=== PATIENT | male | born 1950 | race Caucasian/White ===

== ENCOUNTER 2018-02-15 12:58 | Inpatient (IN) ==
[2018-02-15 15:02] LABS: Baso # (Auto) 0.1 th/mm3 (0.0-0.2); Baso % (Auto) 0.9 % (0.0-2.0); Eos # (Auto) 0.3 th/mm3 (0.0-0.4); Eos % (Auto) 3.6 % (0.0-4.0); Hematocrit 40.2 % (39.0-51.0); Hemoglobin 12.9 gm/dL (13.0-17.0); Lymph # (Auto) 1.1 th/mm3 (1.0-4.8); Lymph % (Auto) 15.6 % (9.0-44.0); Mean Corpuscular HGB Conc 32.1 % (32.0-36.0); Mean Corpuscular Hemoglobin 26.9 pg (27.0-34.0); Mean Corpuscular Volume 83.8 fL (80.0-100.0); Mean Platelet Volume 7.9 fL (7.0-11.0); Mono # (Auto) 0.9 th/mm3 (0.0-0.9); Mono % (Auto) 12.3 % (0.0-8.0); Neut # (Auto) 4.9 th/mm3 (1.8-7.7); Neut % (Auto) 67.6 % (16.0-70.0); Platelet Count 234 th/mm3 (150-450); Red Blood Count 4.79 mil/mm3 (4.50-5.90); Red Cell Distribution Width 17.8 % (11.6-17.2); White Blood Count 7.2 th/mm3 (4.0-11.0)
[2018-02-15 15:11] LABS: Activated Partial Thrombo Time 25.9 sec (24.3-30.1); Prothrombin Time 10.5 sec (9.8-11.6)
[2018-02-15 15:19] LABS: Alanine Aminotransferase 21 U/L (12-78); Albumin 3.5 g/dL (3.4-5.0); Anion Gap 7 meq/L (5-15); Aspartate Aminotransferase 16 U/L (15-37); Blood Urea Nitrogen 14 mg/dL (7-18); Calcium 9.1 mg/dL (8.5-10.1); Carbon Dioxide 25.8 meq/L (21.0-32.0); Chloride 107 meq/L (98-107); Glomerular Filtration Rate 68 mL/min (>89); Glucose,Random 144 mg/dL (74-106); Potassium 4.2 meq/L (3.5-5.1); Sodium 140 meq/L (136-145)
[2018-02-15 15:22] LABS: Alkaline Phosphatase 86 U/L (45-117); Total Protein 7.2 g/dL (6.4-8.2)
--- NOTE | 2018-02-15 16:09 | ED ---
HPI General Chief complaint: Skin/Abscess/Foreign Body Stated complaint: dr sent/skin Time Seen by Provider: 02/15/18 14:09 Source: patient Mode of arrival: wheelchair Limitations: no limitations History of Present Illness HPI narrative: Patient is a 67 year old male who comes in requiring a skin graft to his left foot. He says his back winder told him to come in to have the procedure done. He says he has had the ulcer for a while now, but the skin is not growing back. Dr. Back told him to come to the hospital for the procedure. He says he has been taking Bactrim for the ulcer. He denies fever or chills or any other complaints. Related Data Home Medications Medication Instructions Recorded Confirmed gabapentin 100 mg PO TID 02/15/18 02/15/18 insulin aspart U-100 [Novolog 1 sliding scale dose SUB-Q UD 02/15/18 02/15/18 PenFill U-100 Insulin] insulin detemir U-100 [Levemir 26 unit SUB-Q QPM 02/15/18 02/15/18 U-100 Insulin] lisinopril 10 mg PO DAILY 02/15/18 02/15/18 metformin 500 mg PO BID 02/15/18 02/15/18 Allergies Allergy/AdvReac Type Severity Reaction Status Date / Time No Known Allergies Allergy Unverified 02/15/18 14:09 Review of Systems ROS: all other systems reviewed are negative Constitutional Denies chills and Denies fever(s) ENT Denies dizziness Cardiovascular Denies chest pain and Denies edema Respiratory Denies cough and Denies dyspnea Gastrointestinal Denies nausea and Denies vomiting Musculoskeletal Denies myalgias and Denies arthralgias Integumentary/Breasts Reports lesions Neurologic Denies focal weakness and Denies numbness PMFSH Medical History Medical History Amputation of right lower extremity (Acute) Diabetes (Acute) Hypertension (Acute) Social History Social History Substance History: No History of Abuse Second Hand Smoke Exposure: No Smoking Status: Former smoker How Often Do You Have a Drink Containing Alcohol: 2 to 4 times a month Recent Travel in [facility] within the Last 8 Weeks: No Recent Out of Country Travel within the Last 8 Weeks: No Immunization History Tetanus Immunization: <5 Years Hx Influenza Vaccine This Season: Yes Exam Narrative Exam Narrative: GENERAL: Awake and alert, in no acute distress. SKIN: Circular lesion to the bottom of the left foot, no surrounding erythema or warmth. HEAD: Atraumatic. Normocephalic. EYES: Pupils equal and round. No scleral icterus. ENT: Mucous membranes pink and moist. NECK: Trachea midline. No JVD. CARDIOVASCULAR: Regular rate and rhythm. No murmur appreciated. RESPIRATORY: No accessory muscle use. Clear to auscultation. Breath sounds equal bilaterally. GASTROINTESTINAL: Abdomen soft, non-tender, nondistended. MUSCULOSKELETAL: Right AKA. left pedal pulse intact. NEUROLOGICAL: Awake and alert. No obvious cranial nerve deficits. Motor grossly within normal limits. Normal speech. PSYCHIATRIC: Appropriate mood and affect; insight and judgment normal. Course Initial Documented Vital Signs Temperature 98.3 F 02/15/18 13:05 Pulse Rate 103 H 02/15/18 13:05 Respiratory Rate 18 02/15/18 13:05 Blood Pressure 144/88 H 02/15/18 13:05 Pulse Oximetry 97 02/15/18 13:05 Last Documented Vital Signs Temperature 98.3 F 02/15/18 13:05 Pulse Rate 103 H 02/15/18 13:05 Respiratory Rate 18 02/15/18 13:05 Blood Pressure 144/88 H 02/15/18 13:05 Pulse Oximetry 97 02/15/18 13:05 Medical Decision Making MDM Narrative Medical decision making narrative: Patient is a 67-year-old male who comes in in need of a skin graft. Ulcer in his left foot. Exam shows an ulceration to the bottom of the foot, no surrounding erythema warmth. I spoke with Dr. Bishop who is aware of the patient. She says he requires admission and to continue on Bactrim. IV established, labs sent. Patient given pain medicine. He will be admitted for further management. Medical Screen Exam Complete: Yes Emergency Medical Condition: Yes Differential Diagnosis Differential Diagnosis: Cellulitis versus abscess versus ulcer Medical Records Medical records reviewed: Yes I reviewed the patient's medical records. Lab Data Lab results reviewed: Yes I reviewed the patient's lab results. Result diagrams: 02/15/18 14:50 08/25/18 14:50 Lab Results 02/15/18 02/15/18 02/15/18 Range/Units 14:50 14:50 14:50 WBC 7.2 (4.0-11.0) th/mm3 RBC 4.79 (4.50-5.90) mil/mm3 Hgb 12.9 L (13.0-17.0) gm/dL Hct 40.2 (39.0-51.0) % MCV 83.8 (80.0-100.0) fL MCH 26.9 L (27.0-34.0) pg MCHC 32.1 (32.0-36.0) % RDW 17.8 H (11.6-17.2) % Plt Count 234 (150-450) th/mm3 MPV 7.9 (7.0-11.0) fL Neut % (Auto) 67.6 (16.0-70.0) % Lymph % (Auto) 15.6 (9.0-44.0) % [place] % (Auto) 12.3 H (0.0-8.0) % Eos % (Auto) 3.6 (0.0-4.0) % Baso % (Auto) 0.9 (0.0-2.0) % Neut # (Auto) 4.9 (1.8-7.7) th/mm3 Lymph # (Auto) 1.1 (1.0-4.8) th/mm3 [place] # (Auto) 0.9 (0.0-0.9) th/mm3 Eos # (Auto) 0.3 (0.0-0.4) th/mm3 Baso # (Auto) 0.1 (0.0-0.2) th/mm3 WBC Differential . Differential Comment Auto diff final PT 10.5 (9.8-11.6) sec INR 1.0 Ratio APTT 25.9 (24.3-30.1) sec Sodium 140 (136-145) meq/L Potassium 4.2 (3.5-5.1) meq/L Chloride 107 (98-107) meq/L Carbon Dioxide 25.8 (21.0-32.0) meq/L Anion Gap 7 (5-15) meq/L BUN 14 (7-18) mg/dL Creatinine 1.09 (0.60-1.30) mg/dL Estimated GFR 68 L (>89) mL/min Random Glucose 144 H (74-106) mg/dL Calcium 9.1 (8.5-10.1) mg/dL Total Bilirubin 0.5 (0.2-1.0) mg/dL AST 16 (15-37) U/L ALT 21 (12-78) U/L Alkaline Phosphatase 86 (45-117) U/L Total Protein 7.2 (6.4-8.2) g/dL Albumin 3.5 (3.4-5.0) g/dL Discharge Plan Discharge Disposition Patient Disposition: 30 Still Patient Discharge Condition Condition: Stable Discharge Details Diagnosis: Nonhealing ulcer of left lower extremity Physicians Team ED Provider: Jazmin Mena Primary Care Provider: Camilo Hodges Rxs /Orders / Referrals /Forms Prescriptions: No Action metformin 500 mg Tablet 500 mg PO BID RF: 0 lisinopril 10 mg Tablet 10 mg PO DAILY RF: 0 gabapentin 100 mg Capsule 100 mg PO TID RF: 0 insulin aspart U-100 [Novolog PenFill U-100 Insulin] 100 unit/mL Cartridge 1 sliding scale dose SUB-Q UD RF: 0 insulin detemir U-100 [Levemir U-100 Insulin] 100 unit/mL Solution 26 unit SUB-Q QPM RF: 0 Discharge Interventions Interventions: Vital Signs Last Done: 02/15/18 13:07 Status ED Status: With Doctor
--- NOTE | 2018-02-15 16:26 | P.HPIM ---
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 The patient is followed by Dr. Back and was seen yesterday in the office. She informed him to go to the hospital as soon as possible for pre-op prep prior to planned skin graft on Saturday. The patient states he was not able to get a ride yesterday so he came today. He has no complaints and reports he is feeling well. He was prescribed Bactrim yesterday but hasn't had the chance to fill the prescription yet. He states he has had a chronic open left plantar foot wound since about mid-June following a toe amputation and callus removal. He states the wound has been clean but skin has never been able to grow over and cover it thus needing the skin graft. I certify that the inpatient services were ordered in accordance with Medicare regulations governing the order. This includes certification that hospital inpatient services are reasonable and necessary and in the case of services not specified as inpatient-only under 42 CFR 419.22(n), that they are appropriately provided as inpatient services in accordance to with the 2-midnight benchmark under 43 CFR 412.3(e) - Diagnosis (1) Chronic wound of extremity Review of Systems Constitutional: Denies chills, Denies fever(s) Cardiovascular: Denies chest pain, Denies fast heart rate, Denies rapid, pounding, or irregular heartbeat, Denies shortness of breath Respiratory: Denies cough, Denies wheezing Gastrointestinal: Denies abdominal pain, Denies change in stools Genitourinary: Denies difficulty urinating Musculoskeletal: Denies back pain Skin/Breast: Denies rash PMFSH - History History Provided By: Patient - Medical History Medical History: Medical History (Last Updated 02/15/18 @ 16:48 by Tessie Cottrell MD) Diabetes Hypertension MRSA (methicillin resistant Staphylococcus aureus) infection Peripheral vascular disease Umbilical hernia - Surgical History Surgical History: Surgical History (Last Updated 02/15/18 @ 16:24 by Tessie Cottrell MD) Amputated toe of left foot Amputation of right lower extremity History of right above knee amputation - Family History Family History: Family History (Last Updated 02/15/18 @ 16:25 by Tessie Cottrell MD) Mother CVA (cerebral vascular accident) Father Lung cancer - Tobacco History Second Hand Smoke Exposure: No Smoking Status: Former smoker (Quit June 2017) - Alcohol History How Often Do You Have a Drink Containing Alcohol: 2 to 4 times a month - Substance Use History Substance History: No History of Abuse - Travel History Recent Travel in the [place] Within the Last 8 Weeks: No Recent Travel Out of the Country Within the Last 8 Weeks: No - Immunization History Tetanus Immunization: <5 Years Hx Influenza Vaccine This Season: Yes Medications and Allergies Allergies Allergy/AdvReac Type Severity Reaction Status Date / Time No Known Allergies Allergy Unverified 02/15/18 14:09 Home Medications Medication Instructions Recorded Confirmed Type gabapentin 100 mg PO TID 02/15/18 02/15/18 History insulin aspart U-100 [Novolog 1 sliding scale dose SUB-Q UD 02/15/18 02/15/18 History PenFill U-100 Insulin] insulin detemir U-100 [Levemir 26 unit SUB-Q QPM 02/15/18 02/15/18 History U-100 Insulin] lisinopril 10 mg PO DAILY 02/15/18 02/15/18 History metformin 500 mg PO BID 02/15/18 02/15/18 History Exam Vital signs: Vital Signs 02/15/18 13:05 02/15/18 13:07 Temperature 98.3 F Pulse Rate 103 H 80 Respiratory Rate 18 16 Blood Pressure 144/88 H 143/86 H Pulse Oximetry 97 96 Intake & Output 02/14/18 02/15/18 02/15/18 18:59 06:59 18:59 Weight 88.451 kg Narrative: GENERAL: WN, WD male resting in bed in [facility]. SKIN: Warm and dry. HEENT: AT/NC. Pupils equal and round. MMM. NECK: Supple no tender LAD or JVD. HEART: RRR no m/r/g. LUNGS: CTAB without wheezes or crackles. ABDOMEN: +BS, soft, NT, ND. EXTREMITIES: R above the knee amputation. L 5x4 cm clean, wound with bed of pink /red granulation tissue. No surrounding erythema. No drainage. No foul odor. L 5th digit amputated. NEURO: Awake and alert. PSYCH: Appropriate mood and affect. Results - Labs CBC & Chem 7: 02/15/18 14:50 02/15/18 14:50 Labs: Short CBC 02/15/18 Range/Units 14:50 WBC 7.2 (4.0-11.0) th/mm3 Hgb 12.9 L (13.0-17.0) gm/dL Hct 40.2 (39.0-51.0) % Plt Count 234 (150-450) th/mm3 BMP 02/15/18 14:50 Sodium 140 Potassium 4.2 Chloride 107 Carbon Dioxide 25.8 BUN 14 Creatinine 1.09 Calcium 9.1 Liver Function 02/15/18 Range/Units 14:50 Total Bilirubin 0.5 (0.2-1.0) mg/dL AST 16 (15-37) U/L ALT 21 (12-78) U/L Alkaline Phosphatase 86 (45-117) U/L Albumin 3.5 (3.4-5.0) g/dL Caprini VTE Risk Assessment Caprini VTE Risk Assessment: Moderate/High Risk (score >= 2) Caprini Risk Assessment Model: Point Value = 1 Point Value = 2 Point Value = 3 Point Value = 5 Age 41-60 Minor surgery BMI > 25 kg/m2 Swollen legs Varicose veins or History of unexplained or recurrent spontaneous Oral contraceptives or hormone replacement Sepsis (< 1 month) Serious lung disease, including pneumonia (< 1 month) Abnormal pulmonary function Acute myocardial infarction Congestive heart failure (< 1 month) History of inflammatory bowel disease Medical patient at bed rest Age 61-74 Arthroscopic surgery Major open surgery (> 45 min) Laparoscopic surgery (> 45 min) Malignancy Confined to bed (> 72 hours) Immobilizing plaster cast Central venous access Age >= 75 History of VTE Family history of VTE Factor V Leiden Prothrombin [id number] Lupus anticoagulant Anticardiolipin antibodies Elevated serum homocysteine Heparin-induced thrombocytopenia Other congenital or acquired thrombophilia Stroke (< 1 month) Elective arthroplasty Hip, pelvis, or leg fracture Acute spinal cord injury (< 1 month) Prophylaxis Regimen: Total Risk Factor Score Risk Level Prophylaxis Regimen 0-1 Low Early ambulation 2 Moderate Order ONE of the following: *Sequential Compression Device (SCD) *Heparin 5000 units SQ BID 3-4 Higher Order ONE of the following medications: *Heparin 5000 units SQ TID *Enoxaparin/Lovenox 40 mg SQ daily (WT < 150 kg, CrCl > 30 mL/min) *Enoxaparin/Lovenox 30 mg SQ daily (WT < 150 kg, CrCl > 10-29 mL/min) *Enoxaparin/Lovenox 30 mg SQ BID (WT < 150 kg, CrCl > 30 mL/min) AND/OR *Sequential Compression Device (SCD) 5 or more Highest Order ONE of the following medications: *Heparin 5000 units SQ TID (Preferred with Epidurals) *Enoxaparin/Lovenox 40 mg SQ daily (WT < 150 kg, CrCl > 30 mL/min) *Enoxaparin/Lovenox 30 mg SQ daily (WT < 150 kg, CrCl > 10-29 mL/min) *Enoxaparin/Lovenox 30 mg SQ BID (WT < 150 kg, CrCl > 30 mL/min) AND *Sequential Compression Device (SCD) Assessment and Plan - Assessment (1) Chronic wound of extremity Status: Chronic - Plan 67 year old male with history of IDDM, HTN, neuropathy, and PVD admitted for L chronic foot wound requiring skin graft. 1. L chronic plantar foot wound - Continue Bactrim - Monitor for drainage - Consult podiatry - Planning for skin graft Saturday 2. Diabetes mellitus - Levemir 10 units BID - Sliding scale Novolog with Accuchecks per protocol - Hold home metformin 3. Neuropathy - Continue home gabapentin 4. HTN - Continue home Lisinopril - Monitor BPs DVT prophylaxis: Heparin Code Status: FULL Discussed Condition With: Patient and Dr. Mena
[2018-02-15] MEDS ORDERED: Zolpidem Tartrate 5 MG Tablet PO PRN (16:33)
[2018-02-15] MEDS ORDERED: Acetaminophen 325 MG Tablet PO PRN (16:33)
[2018-02-15] MEDS ORDERED: Bisacodyl 10 MG Supp RECTAL PRN (16:33)
[2018-02-15] MEDS ORDERED: Dextrose 50% in Water 50 ML Vial IV.PUSH PRN (16:53)
[2018-02-15] MEDS: Insulin NovoLOG Aspart Correctional Sugar Inj SQ SCH ×2 (18:19→22:08)
[2018-02-15] MEDS: Gabapentin 100 MG Capsule PO SCH (18:20)
[2018-02-15] MEDS: Insulin Detemir Inj 1,000 UNIT/10 ML Vial SQ SCH (22:07)
[2018-02-15] MEDS: Heparin - SQ 10,000 UNITS/ML Vial SQ SCH (22:07)
[2018-02-15] MEDS: Senna/Docusate Sodium 8.6/50 MG Tablet PO SCH (22:08)
[2018-02-16] MEDS: Insulin NovoLOG Aspart Correctional Sugar Inj SQ SCH ×4 (08:26→21:32)
[2018-02-16] MEDS: Lisinopril 10 MG Tablet PO SCH (08:29)
[2018-02-16] MEDS: Heparin - SQ 10,000 UNITS/ML Vial SQ SCH ×2 (08:29→21:31)
[2018-02-16] MEDS: Senna/Docusate Sodium 8.6/50 MG Tablet PO SCH ×3 (08:29→21:33)
[2018-02-16] MEDS: Gabapentin 100 MG Capsule PO SCH ×3 (08:29→17:13)
[2018-02-16] MEDS: Insulin Detemir Inj 1,000 UNIT/10 ML Vial SQ SCH ×2 (08:30→21:32)
--- NOTE | 2018-02-16 13:37 | P.CONPOD ---
History of Present Illness Service: Podiatry Consult date: 02/16/18 Reason for Consult: Ulcer L foot Primary Care Provider: Camilo Hodges MD History of Present Illness: Patient has long history of ulcer L foot. He has BKA R side and is anxious to continue any and all efforts for limb salvage to L side. He saw Dr Back on and she suggested he come in for debridement in the OR and attempt to graft the area to continue limb salvage efforts Review of Systems All other systems reviewed negative except as stated in HPI PMFSH - History History Provided By: Patient - Medical History Medical History: Medical History (Last Updated 02/15/18 @ 16:48 by Tessie Cottrell MD) Diabetes Hypertension MRSA (methicillin resistant Staphylococcus aureus) infection Peripheral vascular disease Umbilical hernia - Surgical History Surgical History: Surgical History (Last Updated 02/15/18 @ 16:24 by Tessie Cottrell MD) Amputated toe of left foot Amputation of right lower extremity History of right above knee amputation - Family History Family History: Family History (Last Updated 02/15/18 @ 16:25 by Tessie Cottrell MD) Mother CVA (cerebral vascular accident) Father Lung cancer - Tobacco History Second Hand Smoke Exposure: No Smoking Status: Former smoker (Quit June 2017) - Alcohol History How Often Do You Have a Drink Containing Alcohol: 2 to 4 times a month - Substance Use History Substance History: No History of Abuse - Travel History Recent Travel in the [place] Within the Last 8 Weeks: No Recent Travel Out of the Country Within the Last 8 Weeks: No - Immunization History Tetanus Immunization: <5 Years Hx Influenza Vaccine This Season: Yes Medications and Allergies Active Medications: Active Medications Acetaminophen (Tylenol) 650 mg PO Q4H PRN PRN Reason: Temp > 100.4 Hydrocodone Bitart/Acetaminophen ([place] 5/325) 1 tab PO Q6H PRN PRN Reason: PAIN SCALE 1 TO 10 Last Admin: 02/16/18 04:41 Dose: 1 tab Al Hydroxide/Mg Hydroxide (Milk Of Magnesia Liq) 30 ml PO Q12H PRN PRN Reason: Mild Constipation Bisacodyl (Dulcolax Supp) 10 mg RECTAL DAILY PRN PRN Reason: SEVERE CONSITIPATION Dextrose (D50w Vial) 50 ml IV.PUSH UNSCH PRN PRN Reason: PER HYPOGLYCEMIA PROTOCOL Gabapentin (Neurontin) 100 mg PO TID [facility] Last Admin: 02/16/18 12:41 Dose: 100 mg Glucagon (Glucagon Inj) 1 mg OTHER PRN PRN PRN Reason: for Hypoglycemia Protocol Heparin Sodium (Porcine) (Heparin Inj) 5,000 units SQ Q12HR [facility] Last Admin: 02/16/18 08:29 Dose: 5,000 units Insulin Aspart (Novolog Insulin Correctional Sugar Inj) 0 unit SQ ACHS [facility]; Protocol Last Admin: 02/16/18 12:41 Dose: 3 unit Insulin Detemir (Levemir Inj) 10 unit SQ BID [facility] Last Admin: 02/16/18 08:30 Dose: 10 unit Lactulose (Lactulose Liq) 30 ml PO DAILY PRN PRN Reason: SEVERE CONSITIPATION Lisinopril (Prinivil) 10 mg PO DAILY [facility] Last Admin: 02/16/18 08:29 Dose: 10 mg Senna/Docusate Sodium (Jacque-Colace) 1 tab PO BID [facility] Last Admin: 02/16/18 08:31 Dose: Not Given Sennosides (Senokot) 17.2 mg PO Q12H PRN PRN Reason: Moderate Constipation Trimethoprim/Sulfamethoxazole (Bactrim Ds) 1 tab PO Q12HR [facility] Last Admin: 02/16/18 08:29 Dose: 1 tab Zolpidem Tartrate (Ambien) 5 mg PO HS PRN PRN Reason: INSOMNIA Allergies Allergy/AdvReac Type Severity Reaction Status Date / Time No Known Allergies Allergy Unverified 02/15/18 14:09 Home Medications Medication Instructions Recorded Confirmed Type gabapentin 100 mg PO TID 02/15/18 02/15/18 History insulin aspart U-100 [Novolog 1 sliding scale dose SUB-Q UD 02/15/18 02/15/18 History PenFill U-100 Insulin] insulin detemir U-100 [Levemir 26 unit SUB-Q QPM 02/15/18 02/15/18 History U-100 Insulin] lisinopril 10 mg PO DAILY 02/15/18 02/15/18 History metformin 500 mg PO BID 02/15/18 02/15/18 History Physical Exam Vital signs: Vital Signs 02/15/18 20:00 02/16/18 00:00 02/16/18 08:00 Temperature 98.2 F 98.1 F 97.5 F L Pulse Rate 86 86 82 Respiratory Rate 18 18 16 Blood Pressure 124/79 134/83 141/81 H Pulse Oximetry 93 L 96 95 02/16/18 12:00 Temperature 97.9 F Pulse Rate 86 Respiratory Rate 16 Blood Pressure 122/70 Pulse Oximetry 94 L Intake & Output 02/15/18 02/16/18 02/16/18 18:59 06:59 18:59 Output Total 1400 / 1400 Balance -1400 / -1400 Weight 88.451 kg 89.52 kg Output: Urine 1400 / 1400 Other: Date of Last Bowel Movement 02/15/18 Narrative: Ulcer to plantar L foot 4cm x 3.9cm x 0.4cm probing to bone with mild erythema. No yanet purulence noted. R side BKA Results - Labs CBC & Chem 7: 02/15/18 14:50 02/15/18 14:50 Laboratory Results - last 24 hr 02/15/18 02/15/18 02/15/18 14:50 14:50 14:50 WBC 7.2 RBC 4.79 Hgb 12.9 L Hct 40.2 MCV 83.8 MCH 26.9 L MCHC 32.1 RDW 17.8 H Plt Count 234 MPV 7.9 Neut % (Auto) 67.6 Lymph % (Auto) 15.6 [place] % (Auto) 12.3 H Eos % (Auto) 3.6 Baso % (Auto) 0.9 Neut # (Auto) 4.9 Lymph # (Auto) 1.1 [place] # (Auto) 0.9 Eos # (Auto) 0.3 Baso # (Auto) 0.1 WBC Differential . Differential Comment Auto diff final PT 10.5 INR 1.0 APTT 25.9 Sodium 140 Potassium 4.2 Chloride 107 Carbon Dioxide 25.8 Anion Gap 7 BUN 14 Creatinine 1.09 Estimated GFR 68 L POC Glucose Random Glucose 144 H Calcium 9.1 Total Bilirubin 0.5 AST 16 ALT 21 Alkaline Phosphatase 86 Total Protein 7.2 Albumin 3.5 02/15/18 02/15/18 02/16/18 18:19 21:59 07:18 WBC RBC Hgb Hct MCV MCH MCHC RDW Plt Count MPV Neut % (Auto) Lymph % (Auto) [place] % (Auto) Eos % (Auto) Baso % (Auto) Neut # (Auto) Lymph # (Auto) [place] # (Auto) Eos # (Auto) Baso # (Auto) WBC Differential Differential Comment PT INR APTT Sodium Potassium Chloride Carbon Dioxide Anion Gap BUN Creatinine Estimated GFR POC Glucose 134 H 212 H 153 H Random Glucose Calcium Total Bilirubin AST ALT Alkaline Phosphatase Total Protein Albumin 02/16/18 11:48 WBC RBC Hgb Hct MCV MCH MCHC RDW Plt Count MPV Neut % (Auto) Lymph % (Auto) [place] % (Auto) Eos % (Auto) Baso % (Auto) Neut # (Auto) Lymph # (Auto) [place] # (Auto) Eos # (Auto) Baso # (Auto) WBC Differential Differential Comment PT INR APTT Sodium Potassium Chloride Carbon Dioxide Anion Gap BUN Creatinine Estimated GFR POC Glucose 215 H Random Glucose Calcium Total Bilirubin AST ALT Alkaline Phosphatase Total Protein Albumin Assessment and Plan - Assessment (1) Chronic wound of extremity Status: Chronic - Plan To OR tomorrow 2 pm for I&D left foot with graft with Dr Back NPO after midnight
--- NOTE | 2018-02-16 14:53 | P.PNIM ---
Subjective Interval history: Patient says he is feeling right. Denies any chest pain shortness of breath. Reports pain is controlled. Physical Exam Vital signs: Vital Signs 02/15/18 20:00 02/16/18 00:00 02/16/18 08:00 Temperature 98.2 F 98.1 F 97.5 F L Pulse Rate 86 86 82 Respiratory Rate 18 18 16 Blood Pressure 124/79 134/83 141/81 H Pulse Oximetry 93 L 96 95 02/16/18 12:00 02/16/18 13:43 Temperature 97.9 F Pulse Rate 86 Respiratory Rate 16 Blood Pressure 122/70 Pulse Oximetry 94 L 94 L Intake & Output 02/15/18 02/16/18 02/16/18 18:59 06:59 18:59 Output Total 1400 / 1400 Balance -1400 / -1400 Weight 88.451 kg 89.52 kg Output: Urine 1400 / 1400 Other: Date of Last Bowel Movement 02/15/18 Narrative: GENERAL: Patient lying in bed. Appears comfortable. SKIN: Warm and dry. HEAD: Normocephalic. EYES: No scleral icterus. No injection or drainage. NECK: Supple, trachea midline. No JVD or lymphadenopathy. CARDIOVASCULAR: Regular rate and rhythm without murmurs, gallops, or rubs. RESPIRATORY: Breath sounds equal bilaterally. No accessory muscle use. GASTROINTESTINAL: Abdomen soft, non-tender, nondistended. MUSCULOSKELETAL: No cyanosis, or edema. Left foot dressed with dressing clean dry and intact. BACK: Nontender without obvious deformity. No CVA tenderness. Results - Labs CBC & Chem 7: 02/15/18 14:50 02/15/18 14:50 Laboratory Results - last 24 hr 02/15/18 02/15/18 02/15/18 14:50 14:50 14:50 WBC 7.2 RBC 4.79 Hgb 12.9 L Hct 40.2 MCV 83.8 MCH 26.9 L MCHC 32.1 RDW 17.8 H Plt Count 234 MPV 7.9 Neut % (Auto) 67.6 Lymph % (Auto) 15.6 [place] % (Auto) 12.3 H Eos % (Auto) 3.6 Baso % (Auto) 0.9 Neut # (Auto) 4.9 Lymph # (Auto) 1.1 [place] # (Auto) 0.9 Eos # (Auto) 0.3 Baso # (Auto) 0.1 WBC Differential . Differential Comment Auto diff final PT 10.5 INR 1.0 APTT 25.9 Sodium 140 Potassium 4.2 Chloride 107 Carbon Dioxide 25.8 Anion Gap 7 BUN 14 Creatinine 1.09 Estimated GFR 68 L POC Glucose Random Glucose 144 H Calcium 9.1 Total Bilirubin 0.5 AST 16 ALT 21 Alkaline Phosphatase 86 Total Protein 7.2 Albumin 3.5 02/15/18 02/15/18 02/16/18 18:19 21:59 07:18 WBC RBC Hgb Hct MCV MCH MCHC RDW Plt Count MPV Neut % (Auto) Lymph % (Auto) [place] % (Auto) Eos % (Auto) Baso % (Auto) Neut # (Auto) Lymph # (Auto) [place] # (Auto) Eos # (Auto) Baso # (Auto) WBC Differential Differential Comment PT INR APTT Sodium Potassium Chloride Carbon Dioxide Anion Gap BUN Creatinine Estimated GFR POC Glucose 134 H 212 H 153 H Random Glucose Calcium Total Bilirubin AST ALT Alkaline Phosphatase Total Protein Albumin 02/16/18 11:48 WBC RBC Hgb Hct MCV MCH MCHC RDW Plt Count MPV Neut % (Auto) Lymph % (Auto) [place] % (Auto) Eos % (Auto) Baso % (Auto) Neut # (Auto) Lymph # (Auto) [place] # (Auto) Eos # (Auto) Baso # (Auto) WBC Differential Differential Comment PT INR APTT Sodium Potassium Chloride Carbon Dioxide Anion Gap BUN Creatinine Estimated GFR POC Glucose 215 H Random Glucose Calcium Total Bilirubin AST ALT Alkaline Phosphatase Total Protein Albumin Assessment and Plan - Assessment (1) Chronic wound of extremity Status: Chronic - Plan 67 year old male with history of IDDM, HTN, neuropathy, and PVD admitted for L chronic foot wound requiring skin graft. //L chronic plantar foot wound - Continue Bactrim - Monitor for drainage - Consult podiatry - Planning for skin graft Saturday = Plan for surgery tomorrow. Appreciate podiatry assistance. //Diabetes mellitus - Levemir 10 units BID - Sliding scale Novolog with Accuchecks per protocol - Hold home metformin =Blood sugars acceptable. Continue to monitor. //Neuropathy - Continue home gabapentin //HTN - Continue home Lisinopril - Monitor BPs DVT prophylaxis: Heparin Discharge Planning: Surgery tomorrow. Appreciate podiatry assistance
[2018-02-17] MEDS: Insulin NovoLOG Aspart Correctional Sugar Inj SQ SCH ×4 (08:05→21:10)
[2018-02-17] MEDS: Senna/Docusate Sodium 8.6/50 MG Tablet PO SCH ×2 (09:36→21:10)
[2018-02-17] MEDS: Lisinopril 10 MG Tablet PO SCH (09:36)
[2018-02-17] MEDS: Gabapentin 100 MG Capsule PO SCH ×3 (09:37→17:39)
[2018-02-17] MEDS: Insulin Detemir Inj 1,000 UNIT/10 ML Vial SQ SCH ×2 (11:10→21:10)
[2018-02-17] MEDS: Heparin - SQ 10,000 UNITS/ML Vial SQ SCH ×2 (11:20→22:38)
[2018-02-17] MEDS ORDERED: Lidocaine PF 1% Inj 5 ML Syringe INFILTRATN ONE (12:00)
[2018-02-17] MEDS ORDERED: Phenylephrine/NS 1000 MCG/10ML Syringe IV.PUSH ONE (12:00)
--- NOTE | 2018-02-17 12:50 | P.PN ---
Subjective Interval history: Follow up Chronic plantar foot wound Patient awaiting surgery this afternoon endorses foot pain which is improved with [place] offers no other concerns/complaints at this time Physical Exam Vital signs: Vital Signs 02/16/18 13:43 02/16/18 16:00 02/16/18 16:45 Temperature 97.4 F L Pulse Rate 98 H Respiratory Rate 20 17 Blood Pressure 136/67 Pulse Oximetry 94 L 95 02/16/18 20:00 02/17/18 00:00 02/17/18 09:55 Temperature 97.4 F L 97.6 F Pulse Rate 87 83 Respiratory Rate 18 18 Blood Pressure 119/74 133/76 Pulse Oximetry 95 92 L 93 L Intake & Output 02/16/18 02/17/18 02/17/18 18:59 06:59 18:59 Intake Total 1600 / 1600 Output Total 800 / 800 1100 / 1100 Balance 800 / 800 -1100 / -1100 Intake: Oral 1600 / 1600 Output: Urine 800 / 800 1100 / 1100 Other: Date of Last Bowel Movement 02/15/18 Narrative: GENERAL: Patient sitting up in bed. Appears comfortable. SKIN: Warm and dry. HEAD: Normocephalic. EYES: No scleral icterus. No injection or drainage. NECK: Supple, trachea midline. No JVD or lymphadenopathy. CARDIOVASCULAR: Regular rate and rhythm RESPIRATORY: Breath sounds equal bilaterally. No accessory muscle use. GASTROINTESTINAL: Abdomen soft, non-tender, nondistended. MUSCULOSKELETAL: No cyanosis, or edema. Left foot dressed with dressing clean dry and intact. BACK: Nontender without obvious deformity. No CVA tenderness. Results - Labs CBC & Chem 7: 02/15/18 14:50 02/15/18 14:50 Laboratory Results - last 24 hr 02/16/18 02/16/18 02/17/18 15:41 19:44 07:52 POC Glucose 143 H 205 H 135 H 02/17/18 11:15 POC Glucose 155 H Assessment and Plan - Plan 67 year old male with history of IDDM, HTN, neuropathy, and PVD admitted for L chronic foot wound requiring skin graft. //L chronic plantar foot wound - Continue Bactrim - Monitor for drainage - Consult podiatry - Planning for skin graft Saturday - Appreciate podiatry assistance. - CBC and BMP in AM //Diabetes mellitus - Levemir 10 units BID - hold patient currently NPO - Sliding scale Novolog with Accu checks per protocol - Hold home metformin - Continue to monitor. //Neuropathy - Continue home gabapentin //HTN - Continue home Lisinopril - Monitor BPs DVT prophylaxis: Heparin Discharge Planning: Surgery this afternoon. Appreciate podiatry assistance Discussed case with supervising physician Dr. Nj
--- NOTE | 2018-02-17 13:26 | ECG ---
Date Performed: 02/16/2018 Time Performed: 21:20:15 PTAGE: 67 years EKG: Sinus rhythm MILD DIFFUSE ST ELEVATION ANTEROSEPTAL Q WAVES NO PREVIOUS TRACING DOCTOR: Chucho Ayala Interpretating Date/Time 02/17/2018 13:25:42
[2018-02-17] MEDS ORDERED: Bupivacaine PF 0.5% Inj 30 ML Vial ONE (14:38)
[2018-02-17] MEDS ORDERED: Lidocaine 1% Inj 50 ML Vial ONE (14:39)
--- NOTE | 2018-02-17 15:41 | P.PNPOD ---
Subjective Interval history: Patient seen bedside in preop. In agreement with left foot surgical intervention. Denies any N,V,F,Ch. Physical Exam Vital signs: Vital Signs 02/16/18 16:00 02/16/18 16:45 02/16/18 20:00 Temperature 97.4 F L 97.4 F L Pulse Rate 98 H 87 Respiratory Rate 20 17 18 Blood Pressure 136/67 119/74 Pulse Oximetry 95 95 02/17/18 00:00 02/17/18 08:00 02/17/18 09:55 Temperature 97.6 F 97.8 F Pulse Rate 83 88 Respiratory Rate 18 18 Blood Pressure 133/76 134/79 Pulse Oximetry 92 L 94 L 93 L 02/17/18 12:00 Temperature 97.8 F Pulse Rate 93 H Respiratory Rate 20 Blood Pressure 123/72 Pulse Oximetry 96 Intake & Output 02/16/18 02/17/18 02/17/18 18:59 06:59 18:59 Intake Total 1600 / 1600 Output Total 800 / 800 1100 / 1100 Balance 800 / 800 -1100 / -1100 Intake: Oral 1600 / 1600 Output: Urine 800 / 800 1100 / 1100 Other: Date of Last Bowel Movement 02/15/18 02/15/17 Narrative: Dressing to left foot intact with no serous drainage. 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 DP/PT palpable however diminished. Medications and Allergies Active Medications: Active Medications Acetaminophen (Tylenol) 650 mg PO Q4H PRN PRN Reason: Temp > 100.4 Hydrocodone Bitart/Acetaminophen ([place] 5/325) 1 tab PO Q6H PRN PRN Reason: PAIN SCALE 1 TO 10 Last Admin: 02/17/18 11:16 Dose: 1 tab Al Hydroxide/Mg Hydroxide (Milk Of Magnxuan Liq) 30 ml PO Q12H PRN PRN Reason: Mild Constipation Bisacodyl (Dulcolax Supp) 10 mg RECTAL DAILY PRN PRN Reason: SEVERE CONSITIPATION Dextrose (D50w Vial) 50 ml IV.PUSH UNSCH PRN PRN Reason: PER HYPOGLYCEMIA PROTOCOL Gabapentin (Neurontin) 100 mg PO TID [facility] Last Admin: 02/17/18 13:36 Dose: Not Given Glucagon (Glucagon Inj) 1 mg OTHER PRN PRN PRN Reason: for Hypoglycemia Protocol Heparin Sodium (Porcine) (Heparin Inj) 5,000 units SQ Q12HR [facility] Last Admin: 02/17/18 11:20 Dose: Not Given Insulin Aspart (Novolog Insulin Correctional Sugar Inj) 0 unit SQ ACHS [facility]; Protocol Last Admin: 02/17/18 11:21 Dose: Not Given Insulin Detemir (Levemir Inj) 10 unit SQ BID [facility] Last Admin: 02/17/18 11:10 Dose: Not Given Lactulose (Lactulose Liq) 30 ml PO DAILY PRN PRN Reason: SEVERE CONSITIPATION Lisinopril (Prinivil) 10 mg PO DAILY [facility] Last Admin: 02/17/18 09:36 Dose: 10 mg Senna/Docusate Sodium (Jacque-Colace) 1 tab PO BID [facility] Last Admin: 02/17/18 09:36 Dose: 1 tab Sennosides (Senokot) 17.2 mg PO Q12H PRN PRN Reason: Moderate Constipation Trimethoprim/Sulfamethoxazole (Bactrim Ds) 1 tab PO Q12HR [facility] Last Admin: 02/17/18 09:36 Dose: 1 tab Zolpidem Tartrate (Ambien) 5 mg PO HS PRN PRN Reason: INSOMNIA Allergies Allergy/AdvReac Type Severity Reaction Status Date / Time No Known Allergies Allergy Unverified 02/15/18 14:09 Home Medications Medication Instructions Recorded Confirmed Type gabapentin 100 mg PO TID 02/15/18 02/17/18 History insulin aspart U-100 [Novolog 1 sliding scale dose SUB-Q UD 02/15/18 02/15/18 History PenFill U-100 Insulin] insulin detemir U-100 [Levemir 26 unit SUB-Q QPM 02/15/18 02/15/18 History U-100 Insulin] lisinopril 10 mg PO DAILY 02/15/18 02/15/18 History metformin 500 mg PO BID 02/15/18 02/15/18 History amlodipine 10 mg PO DAILY 02/17/18 02/17/18 History baclofen 10 mg PO BID 02/17/18 02/17/18 History clopidogrel 75 mg PO DAILY 02/17/18 02/17/18 History tramadol 50 mg PO Q6H 02/17/18 02/17/18 History Results - Labs CBC & Chem 7: 02/15/18 14:50 02/15/18 14:50 Laboratory Results - last 24 hr 02/16/18 02/16/18 02/17/18 15:41 19:44 07:52 POC Glucose 143 H 205 H 135 H 02/17/18 11:15 POC Glucose 155 H Assessment and Plan - Assessment (1) Chronic wound of extremity Status: Chronic - Plan 67 year old male with left foot ulceration, s/p right BKA Patient to OR today for left foot debridement and irrigation NPO after midnight Consent signed and obtained Debridement and irrigation with graft placement to plantar left foot Patient understands all risks, benefits, complications associated with surgical intervention Anticipate DC in 2-3 days to rehab center
[2018-02-17] MEDS ORDERED: Misc Info for Pharmacy OTHER STA (16:18)
--- NOTE | 2018-02-17 16:18 | P.PCN ---
Date of procedure: 02/17/18 Pre-op diagnosis: Left foot ulcer Post-op diagnosis: same Procedure: Left foot debridement irrigation with graft placement Anesthesia: STELLA Surgeon: Jazmin Back Estimated blood loss (mL): 5 Pathology: none sent Condition: stable Disposition: PACU (With vital signs stable and neurovascular status intact to digits 4 left foot)
[2018-02-17] MEDS ORDERED: fentaNYL Citrate Inj 100 MCG/2 ML Ampul ONE ×2 (16:28→17:04)
--- NOTE | 2018-02-17 18:44 | MR ---
cc: Jazmin Back DPM DATE: 02/17/2018 SURGEON: Jazmin Back DPM. MATERIALS MGMT TECH: None. PREOPERATIVE DIAGNOSIS: Left foot plantar ulceration. POSTOPERATIVE DIAGNOSIS: Left foot plantar ulceration. PROCEDURE: Left foot debridement and irrigation with graft placement. ANESTHESIA: General. HEMOSTASIS: None. ESTIMATED BLOOD LOSS: 5 mL. MATERIALS: Chromic gut 3-0, Neox cord 4 x 3 graft. INJECTABLES: Marcaine 0.5% plain injected about the left foot, 10 mL total in V block fashion to plantar ulceration. COMPLICATIONS: None. INDICATIONS FOR PROCEDURE: The patient is a 67-year-old male with a history of [id number] amputation to the right lower extremity. The patient in the past 6 months underwent debridement and irrigation of left plantar and lateral foot ulcers with graft placement, both of which healed appropriately. He was seen in the office for a reoccurring left plantar foot ulceration. The patient states he had been walking in a new shoe and had a blister appear, which turned into ulceration. Wound VAC was attempted as well as other conservative wound care modalities. The patient now has nonhealing ulcer and secondary to his history of [id number] amputation to the right foot, extensive limb salvage attempts are being made for left lower extremity. The patient understands all alternatives, complications, risks, and benefits associated with surgical procedure to the left foot. He would like to proceed with left foot debridement and irrigation of ulceration with graft placement. DESCRIPTION OF PROCEDURE: The patient was brought to the operating room and placed on the operating room table. General anesthesia was then induced. Left foot was prepped and draped in the usual sterile fashion. Marc[place] 0.5% plain was infiltrated in a V block fashion around the left plantar foot ulceration. The left plantar foot ulceration was noted to measure 5 cm x 5 cm with proud granular base and hyperkeratotic borders. Hyperkeratotic borders were debrided with a 15 blade. Full thickness excisional debridement to subcutaneous tissue and muscle performed. A Versajet was also utilized to debride ulceration. Bleeding was noted to ulceration. At this time, a 4 x 3 Neox cord graft was applied with 3-0 chromic gut. Following application and adherence of graft, Adaptic, 4 x 4s, cast padding, and Jr were applied. The patient tolerated the procedure well. He will remain nonweightbearing to left lower extremity. We will keep him in-house and reevaluate wound in 48-72 hours. Patient to be hopefully discharge to rehab within the week due to weight bearing status. MONICA Downey , 04:25 PM , 04:32 PM ABIEL
[2018-02-18 05:12] LABS: Baso # (Auto) 0.1 th/mm3 (0.0-0.2); Baso % (Auto) 1.2 % (0.0-2.0); Eos # (Auto) 0.4 th/mm3 (0.0-0.4); Eos % (Auto) 6.1 % (0.0-4.0); Hematocrit 38.4 % (39.0-51.0); Hemoglobin 12.7 gm/dL (13.0-17.0); Mean Corpuscular HGB Conc 33.2 % (32.0-36.0); Mean Corpuscular Hemoglobin 27.3 pg (27.0-34.0); Mean Corpuscular Volume 82.3 fL (80.0-100.0); Mean Platelet Volume 8.3 fL (7.0-11.0); Mono % (Auto) 15.1 % (0.0-8.0); Neut % (Auto) 62.6 % (16.0-70.0); Platelet Count 247 th/mm3 (150-450); Red Blood Count 4.66 mil/mm3 (4.50-5.90); White Blood Count 6.4 th/mm3 (4.0-11.0)
[2018-02-18 05:33] LABS: Calcium 8.5 mg/dL (8.5-10.1); Carbon Dioxide 24.8 meq/L (21.0-32.0); Potassium 4.3 meq/L (3.5-5.1)
[2018-02-18] MEDS: Insulin NovoLOG Aspart Correctional Sugar Inj SQ SCH ×4 (09:27→21:02)
[2018-02-18] MEDS: Lisinopril 10 MG Tablet PO SCH (09:33)
[2018-02-18] MEDS: Heparin - SQ 10,000 UNITS/ML Vial SQ SCH ×2 (09:34→20:55)
[2018-02-18] MEDS: Insulin Detemir Inj 1,000 UNIT/10 ML Vial SQ SCH ×2 (09:34→21:02)
[2018-02-18] MEDS: Senna/Docusate Sodium 8.6/50 MG Tablet PO SCH ×2 (09:34→20:54)
[2018-02-18] MEDS: Gabapentin 100 MG Capsule PO SCH ×3 (09:34→17:08)
--- NOTE | 2018-02-18 13:06 | P.PN ---
Subjective Interval history: follow up left foot wound S/P Left foot debridement irrigation with graft placement with Dr. Back 02/17 Patient reports post op pain present better with pain medication offers no other complaints at this time Physical Exam Vital signs: Vital Signs 02/17/18 16:22 02/17/18 16:30 02/17/18 16:45 Temperature 97.8 F Pulse Rate 102 H 96 H 96 H Respiratory Rate 16 14 14 Blood Pressure 110/70 113/67 109/68 Pulse Oximetry 94 L 97 96 02/17/18 17:00 02/17/18 17:15 02/17/18 20:38 Temperature 98.5 F 97.3 F L Pulse Rate 90 88 98 H Respiratory Rate 14 14 20 Blood Pressure 102/63 108/67 102/69 Pulse Oximetry 94 L 96 93 L 02/18/18 00:33 02/18/18 07:49 02/18/18 10:57 Temperature 97.4 F L 97.9 F Pulse Rate 87 96 H Respiratory Rate 18 18 Blood Pressure 122/79 137/81 Pulse Oximetry 94 L 96 97 02/18/18 12:00 Temperature 98.3 F Pulse Rate 96 H Respiratory Rate 20 Blood Pressure 138/71 Pulse Oximetry 94 L Intake & Output 02/17/18 02/18/18 02/18/18 18:59 06:59 18:59 Intake Total 600 / 600 780 / 780 Output Total 5 / 5 1400 / 1400 Balance 595 / 595 -620 / -620 Weight 89 kg Intake: Oral 0 / 0 780 / 780 Anesthesia Amount 600 / 600 Output: Urine 0 / 0 1400 / 1400 Estimated Blood Loss 5 / 5 Other: Date of Last Bowel Movement 02/15/17 02/15/17 Narrative: GENERAL: Patient sitting up in bed. Appears comfortable. SKIN: Warm and dry. HEAD: Normocephalic. EYES: No scleral icterus. No injection or drainage. NECK: Supple, trachea midline. No JVD or lymphadenopathy. CARDIOVASCULAR: Regular rate and rhythm RESPIRATORY: Breath sounds equal bilaterally. No accessory muscle use. GASTROINTESTINAL: Abdomen soft, non-tender, nondistended. MUSCULOSKELETAL: No cyanosis, or edema. Left foot post-op dressed with dressing clean dry and intact. BACK: Nontender without obvious deformity. No CVA tenderness. Results - Labs CBC & Chem 7: 02/18/18 04:40 02/18/18 04:40 Laboratory Results - last 24 hr 02/17/18 02/17/18 02/17/18 16:25 17:35 21:09 WBC RBC Hgb Hct MCV MCH MCHC RDW Plt Count MPV Neut % (Auto) Lymph % (Auto) [place] % (Auto) Eos % (Auto) Baso % (Auto) Neut # (Auto) Lymph # (Auto) [place] # (Auto) Eos # (Auto) Baso # (Auto) WBC Differential Differential Comment Sodium Potassium Chloride Carbon Dioxide Anion Gap BUN Creatinine Estimated GFR POC Glucose 123 H 119 H 185 H Random Glucose Calcium 02/18/18 02/18/18 02/18/18 04:40 04:40 07:32 WBC 6.4 RBC 4.66 Hgb 12.7 L Hct 38.4 L MCV 82.3 MCH 27.3 MCHC 33.2 RDW 18.0 H Plt Count 247 MPV 8.3 Neut % (Auto) 62.6 Lymph % (Auto) 15.0 [place] % (Auto) 15.1 H Eos % (Auto) 6.1 H Baso % (Auto) 1.2 Neut # (Auto) 4.0 Lymph # (Auto) 1.0 [place] # (Auto) 1.0 H Eos # (Auto) 0.4 Baso # (Auto) 0.1 WBC Differential . Differential Comment Auto diff final Sodium 140 Potassium 4.3 Chloride 104 Carbon Dioxide 24.8 Anion Gap 11 BUN 20 H Creatinine 1.63 H Estimated GFR 43 L POC Glucose 138 H Random Glucose 134 H Calcium 8.5 02/18/18 12:41 WBC RBC Hgb Hct MCV MCH MCHC RDW Plt Count MPV Neut % (Auto) Lymph % (Auto) [place] % (Auto) Eos % (Auto) Baso % (Auto) Neut # (Auto) Lymph # (Auto) [place] # (Auto) Eos # (Auto) Baso # (Auto) WBC Differential Differential Comment Sodium Potassium Chloride Carbon Dioxide Anion Gap BUN Creatinine Estimated GFR POC Glucose 206 H Random Glucose Calcium Assessment and Plan - Plan 67 year old male with history of IDDM, HTN, neuropathy, and PVD admitted for L chronic foot wound requiring skin graft. //L chronic plantar foot wound - Continue Bactrim - Monitor for drainage - Consult podiatry - s/p Left foot debridement irrigation with graft placement 02/[address] Back - Appreciate podiatry assistance. podiatry would like to keep patient in the hospital for 48-72 hours post op to monitor wound healing - patient non weight bearing LLE and has R BKA, will likely need SNF/rehab at time of DC //Diabetes mellitus - Levemir 10 units BID - hold patient currently NPO - Sliding scale Novolog with Accu checks per protocol - Hold home metformin - Continue to monitor. //Neuropathy - Continue home gabapentin //HTN - Continue home Lisinopril - Monitor BPs DVT prophylaxis: Heparin Discharge Planning: once cleared by podiatry Discussed case with supervising physician Dr. Nj
--- NOTE | 2018-02-18 22:39 | P.PNPOD ---
Subjective Interval history: Patient seen bedside post op day 1. Denies calf pain. Denies any N,V,F,Ch. Physical Exam Vital signs: Vital Signs 02/18/18 00:33 02/18/18 07:49 02/18/18 10:57 Temperature 97.4 F L 97.9 F Pulse Rate 87 96 H Respiratory Rate 18 18 Blood Pressure 122/79 137/81 Pulse Oximetry 94 L 96 97 02/18/18 12:00 02/18/18 16:00 02/18/18 20:00 Temperature 98.3 F 97.6 F 97.3 F L Pulse Rate 96 H 98 H 93 H Respiratory Rate 20 18 20 Blood Pressure 138/71 126/82 123/75 Pulse Oximetry 94 L 94 L 92 L Intake & Output 02/18/18 02/18/18 02/19/18 06:59 18:59 06:59 Intake Total 780 / 780 840 / 840 Output Total 1400 / 1400 1700 / 1700 Balance -620 / -620 -860 / -860 Weight 89 kg Intake: Oral 780 / 780 840 / 840 Output: Urine 1400 / 1400 1700 / 1700 Other: Date of Last Bowel Movement 02/15/17 # Bowel Movements 0 Narrative: Dressing to the left foot intact with no strikethrough noted. No calf pain on compression of left calf. 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 Medications and Allergies Active Medications: Active Medications Acetaminophen (Tylenol) 650 mg PO Q4H PRN PRN Reason: Temp > 100.4 Hydrocodone Bitart/Acetaminophen ([place] 5/325) 1 tab PO Q6H PRN PRN Reason: PAIN SCALE 1 TO 10 Last Admin: 02/18/18 17:08 Dose: 1 tab Al Hydroxide/Mg Hydroxide (Milk Of Magnesia Liq) 30 ml PO Q12H PRN PRN Reason: Mild Constipation Bisacodyl (Dulcolax Supp) 10 mg RECTAL DAILY PRN PRN Reason: SEVERE CONSITIPATION Dextrose (D50w Vial) 50 ml IV.PUSH UNSCH PRN PRN Reason: PER HYPOGLYCEMIA PROTOCOL Gabapentin (Neurontin) 100 mg PO TID [facility] Last Admin: 02/18/18 17:08 Dose: 100 mg Glucagon (Glucagon Inj) 1 mg OTHER PRN PRN PRN Reason: for Hypoglycemia Protocol Heparin Sodium (Porcine) (Heparin Inj) 5,000 units SQ Q12HR [facility] Last Admin: 02/18/18 20:55 Dose: 5,000 units Insulin Aspart (Novolog Insulin Correctional Sugar Inj) 0 unit SQ [facility]; Protocol Last Admin: 02/18/18 21:02 Dose: 3 unit Insulin Detemir (Levemir Inj) 10 unit SQ BID [facility] Last Admin: 02/18/18 21:02 Dose: 10 unit Lactulose (Lactulose Liq) 30 ml PO DAILY PRN PRN Reason: SEVERE CONSITIPATION Lisinopril (Prinivil) 10 mg PO DAILY [facility] Last Admin: 02/18/18 09:33 Dose: 10 mg Senna/Docusate Sodium (Jacque-Colace) 1 tab PO BID [facility] Last Admin: 02/18/18 20:54 Dose: 1 tab Sennosides (Senokot) 17.2 mg PO Q12H PRN PRN Reason: Moderate Constipation Sodium Chloride (Ns Flush) 2 ml IV.FLUSH BID [facility] Last Admin: 02/18/18 21:05 Dose: 2 ml Sodium Chloride (Ns Flush) 2 ml IV.FLUSH PRN PRN PRN Reason: FLUSH AFTER USING IV ACCESS Trimethoprim/Sulfamethoxazole (Bactrim Ds) 1 tab PO Q12HR [facility] Last Admin: 02/18/18 20:54 Dose: 1 tab Zolpidem Tartrate (Ambien) 5 mg PO HS PRN PRN Reason: INSOMNIA Allergies Allergy/AdvReac Type Severity Reaction Status Date / Time No Known Allergies Allergy Unverified 02/15/18 14:09 Home Medications Medication Instructions Recorded Confirmed Type gabapentin 100 mg PO TID 02/15/18 02/17/18 History insulin aspart U-100 [Novolog 1 sliding scale dose SUB-Q UD 02/15/18 02/15/18 History PenFill U-100 Insulin] insulin detemir U-100 [Levemir 26 unit SUB-Q QPM 02/15/18 02/15/18 History U-100 Insulin] lisinopril 10 mg PO DAILY 02/15/18 02/15/18 History metformin 500 mg PO BID 02/15/18 02/15/18 History amlodipine 10 mg PO DAILY 02/17/18 02/17/18 History baclofen 10 mg PO BID 02/17/18 02/17/18 History clopidogrel 75 mg PO DAILY 02/17/18 02/17/18 History tramadol 50 mg PO Q6H 02/17/18 02/17/18 History Results - Labs CBC & Chem 7: 02/18/18 04:40 02/18/18 04:40 Laboratory Results - last 24 hr 02/18/18 02/18/18 02/18/18 04:40 04:40 07:32 WBC 6.4 RBC 4.66 Hgb 12.7 L Hct 38.4 L MCV 82.3 MCH 27.3 MCHC 33.2 RDW 18.0 H Plt Count 247 MPV 8.3 Neut % (Auto) 62.6 Lymph % (Auto) 15.0 [place] % (Auto) 15.1 H Eos % (Auto) 6.1 H Baso % (Auto) 1.2 Neut # (Auto) 4.0 Lymph # (Auto) 1.0 [place] # (Auto) 1.0 H Eos # (Auto) 0.4 Baso # (Auto) 0.1 WBC Differential . Differential Comment Auto diff final Sodium 140 Potassium 4.3 Chloride 104 Carbon Dioxide 24.8 Anion Gap 11 BUN 20 H Creatinine 1.63 H Estimated GFR 43 L POC Glucose 138 H Random Glucose 134 H Calcium 8.5 02/18/18 02/18/18 02/18/18 12:41 16:56 20:57 WBC RBC Hgb Hct MCV MCH MCHC RDW Plt Count MPV Neut % (Auto) Lymph % (Auto) [place] % (Auto) Eos % (Auto) Baso % (Auto) Neut # (Auto) Lymph # (Auto) [place] # (Auto) Eos # (Auto) Baso # (Auto) WBC Differential Differential Comment Sodium Potassium Chloride Carbon Dioxide Anion Gap BUN Creatinine Estimated GFR POC Glucose 206 H 134 H 224 H Random Glucose Calcium Assessment and Plan - Assessment (1) Chronic wound of extremity Status: Chronic - Plan 67 year old male with left foot ulceration, s/p right BKA Will evaluate wound and change dressing tomorrow Patent will need dressing changed every 48 hours with adaptic, 4x4s, Webril ( cast padding) and SARTHAK to the left foot Anticipate DC in 2-3 days to rehab center [facility] to the left LE
[2018-02-19] MEDS: Insulin Detemir Inj 1,000 UNIT/10 ML Vial SQ SCH ×2 (09:40→21:30)
[2018-02-19] MEDS: Insulin NovoLOG Aspart Correctional Sugar Inj SQ SCH ×4 (09:40→21:32)
[2018-02-19] MEDS: Lisinopril 10 MG Tablet PO SCH (09:41)
[2018-02-19] MEDS: Gabapentin 100 MG Capsule PO SCH ×3 (09:41→18:05)
[2018-02-19] MEDS: Heparin - SQ 10,000 UNITS/ML Vial SQ SCH ×2 (09:41→21:30)
[2018-02-19] MEDS: Senna/Docusate Sodium 8.6/50 MG Tablet PO SCH ×2 (09:41→21:29)
--- NOTE | 2018-02-19 17:52 | P.PN ---
Subjective Interval history: Patient going for skin graft surgery today no acute issue. Physical Exam Vital signs: Vital Signs 02/18/18 20:00 02/18/18 23:11 02/19/18 08:00 Temperature 97.3 F L 97.5 F L 98.0 F Pulse Rate 93 H 88 99 H Respiratory Rate 20 18 19 Blood Pressure 123/75 126/84 132/80 Pulse Oximetry 92 L 96 97 02/19/18 12:00 02/19/18 16:00 Temperature 96.7 F L 97.3 F L Pulse Rate 105 H 90 Respiratory Rate 18 17 Blood Pressure 128/77 133/81 Pulse Oximetry 95 96 Intake & Output 02/18/18 02/19/18 02/19/18 18:59 06:59 18:59 Intake Total 840 / 840 480 / 480 Output Total 1700 / 1700 1700 / 1700 Balance -860 / -860 -1220 / -1220 Weight 0 g Intake: Oral 840 / 840 480 / 480 Output: Urine 1700 / 1700 1700 / 1700 Other: Date of Last Bowel Movement 02/17/18 02/17/18 # Bowel Movements 0 - Constitutional no acute distress - Routine HEENT Exam Head: Present: normocephalic, atraumatic ENT: Present: mucous membranes moist - Routine Neck Exam Present: supple, full ROM - Routine Respiratory Exam Present: CTA bilaterally - Routine Cardiovascular Exam Present: RRR, S1, S2 - Routine Abdominal Exam Present: soft, normoactive bowel sounds - Routine Extremities Exam Comments: Right AKA. - Routine Skin Exam Present: dry, warm, wounds Comments: Left foot wound. - Routine Neurological Exam Present: alert, oriented X3, CN II-XII intact, normal speech - Detailed Neurological Exam: Coma Scale Eye Opening: Spontaneous Verbal Response: Oriented Motor Response: Obey commands [place] Coma Scale Total: 15 - Routine Psychiatric Exam Present: normal affect, normal thought process, good judgment Results - Labs CBC & Chem 7: 02/19/18 19:38 02/19/18 19:38 Laboratory Results - last 24 hr 02/18/18 02/19/18 02/19/18 20:57 08:24 12:06 POC Glucose 224 H 153 H 172 H 02/19/18 17:03 POC Glucose 146 H Assessment and Plan - Plan Assessment and Plan (1) Chronic wound of extremity 67 year old male with history of IDDM, HTN, neuropathy, and PVD admitted for L chronic foot wound requiring skin graft. -Left chronic plantar foot wound - Continue Bactrim - Monitor for drainage - podiatry input noted. - Planning for skin graft Saturday = Appreciate podiatry assistance. Diabetes mellitus - Levemir 10 units BID - Sliding scale Novolog with Accuchecks per protocol - Hold home metformin =Blood sugars acceptable. Continue to monitor. Neuropathy Diabetic. - Continue home gabapentin HTN - Continue home Lisinopril - Monitor BPs DVT prophylaxis: Heparin Discharge Planning: soon.
[2018-02-19 20:14] LABS: Baso # (Auto) 0.1 th/mm3 (0.0-0.2); Baso % (Auto) 1.2 % (0.0-2.0); Eos # (Auto) 0.4 th/mm3 (0.0-0.4); Eos % (Auto) 6.3 % (0.0-4.0); Hematocrit 41.7 % (39.0-51.0); Hemoglobin 13.6 gm/dL (13.0-17.0); Lymph # (Auto) 1.4 th/mm3 (1.0-4.8); Lymph % (Auto) 23.1 % (9.0-44.0); Mean Corpuscular HGB Conc 32.8 % (32.0-36.0); Mean Corpuscular Hemoglobin 27.3 pg (27.0-34.0); Mean Corpuscular Volume 83.4 fL (80.0-100.0); Mean Platelet Volume 8.3 fL (7.0-11.0); Mono # (Auto) 1.1 th/mm3 (0.0-0.9); Mono % (Auto) 17.6 % (0.0-8.0); Neut # (Auto) 3.2 th/mm3 (1.8-7.7); Neut % (Auto) 51.8 % (16.0-70.0); Platelet Count 280 th/mm3 (150-450); Red Blood Count 4.99 mil/mm3 (4.50-5.90); Red Cell Distribution Width 18.3 % (11.6-17.2); White Blood Count 6.2 th/mm3 (4.0-11.0)
[2018-02-19 21:51] LABS: Albumin 3.6 g/dL (3.4-5.0); Anion Gap 9 meq/L (5-15); Aspartate Aminotransferase 25 U/L (15-37); Blood Urea Nitrogen 24 mg/dL (7-18); Calcium 9.1 mg/dL (8.5-10.1); Carbon Dioxide 23.8 meq/L (21.0-32.0); Chloride 103 meq/L (98-107); Glomerular Filtration Rate 46 mL/min (>89); Glucose,Random 117 mg/dL (74-106); Potassium 4.3 meq/L (3.5-5.1); Sodium 136 meq/L (136-145)
--- NOTE | 2018-02-19 21:54 | P.PNPOD ---
Subjective Interval history: Patient seen bedside. Resting comfortably. Denies any N,V,F,Ch. Physical Exam Vital signs: Vital Signs 02/18/18 23:11 02/19/18 08:00 02/19/18 12:00 Temperature 97.5 F L 98.0 F 96.7 F L Pulse Rate 88 99 H 105 H Respiratory Rate 18 19 18 Blood Pressure 126/84 132/80 128/77 Pulse Oximetry 96 97 95 02/19/18 16:00 02/19/18 20:00 Temperature 97.3 F L 98.2 F Pulse Rate 90 103 H Respiratory Rate 17 19 Blood Pressure 133/81 124/67 Pulse Oximetry 96 94 L Intake & Output 02/19/18 02/19/18 02/20/18 06:59 18:59 06:59 Intake Total 480 / 480 900 / 900 Output Total 1700 / 1700 2200 / 2200 Balance -1220 / -1220 -1300 / -1300 Weight 0 g Intake: Oral 480 / 480 900 / 900 Output: Urine 1700 / 1700 2200 / 2200 Other: Date of Last Bowel Movement 02/17/18 02/17/18 # Bowel Movements 1 Narrative: Graft secure with suture and graft incorporating to granular base of left foot plantar ulceration. 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 Medications and Allergies Active Medications: Active Medications Acetaminophen (Tylenol) 650 mg PO Q4H PRN PRN Reason: Temp > 100.4 Hydrocodone Bitart/Acetaminophen ([place] 5/325) 1 tab PO Q6H PRN PRN Reason: PAIN SCALE 1 TO 10 Last Admin: 02/19/18 17:57 Dose: 1 tab Al Hydroxide/Mg Hydroxide (Milk Of Magnesia Liq) 30 ml PO Q12H PRN PRN Reason: Mild Constipation Bisacodyl (Dulcolax Supp) 10 mg RECTAL DAILY PRN PRN Reason: SEVERE CONSITIPATION Dextrose (D50w Vial) 50 ml IV.PUSH UNSCH PRN PRN Reason: PER HYPOGLYCEMIA PROTOCOL Gabapentin (Neurontin) 100 mg PO TID [facility] Last Admin: 02/19/18 18:05 Dose: 100 mg Glucagon (Glucagon Inj) 1 mg OTHER PRN PRN PRN Reason: for Hypoglycemia Protocol Heparin Sodium (Porcine) (Heparin Inj) 5,000 units SQ Q12HR [facility] Last Admin: 02/19/18 21:30 Dose: 5,000 units Insulin Aspart (Novolog Insulin Correctional Sugar Inj) 0 unit SQ ACHS [facility]; Protocol Last Admin: 02/19/18 21:32 Dose: Not Given Insulin Detemir (Levemir Inj) 10 unit SQ BID [facility] Last Admin: 02/19/18 21:30 Dose: 10 unit Lactulose (Lactulose Liq) 30 ml PO DAILY PRN PRN Reason: SEVERE CONSITIPATION Lisinopril (Prinivil) 10 mg PO DAILY [facility] Last Admin: 02/19/18 09:41 Dose: 10 mg Senna/Docusate Sodium (Jacque-Colace) 1 tab PO BID [facility] Last Admin: 02/19/18 21:29 Dose: 1 tab Sennosides (Senokot) 17.2 mg PO Q12H PRN PRN Reason: Moderate Constipation Sodium Chloride (Ns Flush) 2 ml IV.FLUSH BID [facility] Last Admin: 02/19/18 21:31 Dose: 2 ml Sodium Chloride (Ns Flush) 2 ml IV.FLUSH PRN PRN PRN Reason: FLUSH AFTER USING IV ACCESS Trimethoprim/Sulfamethoxazole (Bactrim Ds) 1 tab PO Q12HR [facility] Last Admin: 02/19/18 21:29 Dose: 1 tab Zolpidem Tartrate (Ambien) 5 mg PO HS PRN PRN Reason: INSOMNIA Allergies Allergy/AdvReac Type Severity Reaction Status Date / Time No Known Allergies Allergy Unverified 02/15/18 14:09 Home Medications Medication Instructions Recorded Confirmed Type gabapentin 100 mg PO TID 02/15/18 02/17/18 History insulin aspart U-100 [Novolog 1 sliding scale dose SUB-Q UD 02/15/18 02/15/18 History PenFill U-100 Insulin] insulin detemir U-100 [Levemir 26 unit SUB-Q QPM 02/15/18 02/15/18 History U-100 Insulin] lisinopril 10 mg PO DAILY 02/15/18 02/15/18 History metformin 500 mg PO BID 02/15/18 02/15/18 History amlodipine 10 mg PO DAILY 02/17/18 02/17/18 History baclofen 10 mg PO BID 02/17/18 02/17/18 History clopidogrel 75 mg PO DAILY 02/17/18 02/17/18 History tramadol 50 mg PO Q6H 02/17/18 02/17/18 History Results - Labs CBC & Chem 7: 02/19/18 19:38 02/19/18 19:38 Laboratory Results - last 24 hr 02/19/18 02/19/18 02/19/18 08:24 12:06 17:03 WBC RBC Hgb Hct MCV MCH MCHC RDW Plt Count MPV Neut % (Auto) Lymph % (Auto) [place] % (Auto) Eos % (Auto) Baso % (Auto) Neut # (Auto) Lymph # (Auto) [place] # (Auto) Eos # (Auto) Baso # (Auto) WBC Differential Differential Comment Sodium Potassium Chloride Carbon Dioxide Anion Gap BUN Creatinine Estimated GFR POC Glucose 153 H 172 H 146 H Random Glucose Calcium AST Albumin 02/19/18 02/19/18 02/19/18 19:32 19:38 19:38 WBC 6.2 RBC 4.99 Hgb 13.6 Hct 41.7 MCV 83.4 MCH 27.3 MCHC 32.8 RDW 18.3 H Plt Count 280 MPV 8.3 Neut % (Auto) 51.8 Lymph % (Auto) 23.1 [place] % (Auto) 17.6 H Eos % (Auto) 6.3 H Baso % (Auto) 1.2 Neut # (Auto) 3.2 Lymph # (Auto) 1.4 [place] # (Auto) 1.1 H Eos # (Auto) 0.4 Baso # (Auto) 0.1 WBC Differential . Differential Comment Auto diff final Sodium 136 Potassium 4.3 Chloride 103 Carbon Dioxide 23.8 Anion Gap 9 BUN 24 H Creatinine 1.52 H Estimated GFR 46 L POC Glucose 139 H Random Glucose 117 H Calcium 9.1 AST 25 Albumin 3.6 Assessment and Plan - Assessment (1) Chronic wound of extremity Status: Chronic - Plan 67 year old male with left foot ulceration, s/p right BKA Patient ok to DC to rehab center per Podiatry Patent will need dressing changed every 48 hours with adaptic, 4x4s, Webril ( cast padding) and SARTHAK to the left foot while in rehab NWB to left foot Patient to follow up in office with Dr. Back within 1 week of discharge
[2018-02-19 22:00] LABS: Alanine Aminotransferase 28 U/L (12-78); Alkaline Phosphatase 77 U/L (45-117); Total Protein 7.8 g/dL (6.4-8.2)
[2018-02-20] MEDS: Insulin NovoLOG Aspart Correctional Sugar Inj SQ SCH ×3 (08:11→16:32)
[2018-02-20] MEDS: Lisinopril 10 MG Tablet PO SCH (08:12)
[2018-02-20] MEDS: Insulin Detemir Inj 1,000 UNIT/10 ML Vial SQ SCH (08:12)
[2018-02-20] MEDS: Heparin - SQ 10,000 UNITS/ML Vial SQ SCH (08:13)
[2018-02-20] MEDS: Senna/Docusate Sodium 8.6/50 MG Tablet PO SCH (08:13)
[2018-02-20] MEDS: Gabapentin 100 MG Capsule PO SCH ×4 (08:14→16:22)
[2018-02-20 12:45] VITALS: BP 131/79; PULSE 109; RESP 17; TEMP 97.4; O2SAT 97
--- NOTE | 2018-02-20 16:47 | P.PN ---
Subjective Interval history: Patient s/p skin graft surgery left foot ok to discharge home today. Physical Exam Vital signs: Vital Signs 02/19/18 20:00 02/20/18 00:00 02/20/18 08:00 Temperature 98.2 F 97.1 F L 97.3 F L Pulse Rate 103 H 91 H 89 Respiratory Rate 19 20 19 Blood Pressure 124/67 126/79 136/79 Pulse Oximetry 94 L 93 L 99 02/20/18 12:00 Temperature 97.4 F L Pulse Rate 109 H Respiratory Rate 17 Blood Pressure 131/79 Pulse Oximetry 97 Intake & Output 02/19/18 02/20/18 02/20/18 18:59 06:59 18:59 Intake Total 900 / 900 2000 / 2000 Output Total 2200 / 2200 1600 / 1600 Balance -1300 / -1300 400 / 400 Intake: Oral 900 / 900 1999 / 1999 Output: Urine 2200 / 2200 1600 / 1600 Other: Date of Last Bowel Movement 02/17/18 02/17/18 # Bowel Movements 1 - Constitutional no acute distress - Routine HEENT Exam Head: Present: normocephalic, atraumatic Eye: Present: EOMI, PERRL ENT: Present: mucous membranes moist - Routine Neck Exam Present: supple, full ROM - Routine Respiratory Exam Present: CTA bilaterally - Routine Cardiovascular Exam Present: RRR, S1, S2 - Routine Abdominal Exam Present: soft, normoactive bowel sounds - Routine Extremities Exam Present: full ROM, pulses intact Comments: Left planter foot wound. ..s/p skin graft. - Routine Skin Exam Present: dry, warm, wounds Comments: left planter foot wound. ...s/p skin graft. - Routine Neurological Exam Present: alert, oriented X3, CN II-XII intact, normal speech - Detailed Neurological Exam: Coma Scale Eye Opening: Spontaneous Verbal Response: Oriented Motor Response: Obey commands [place] Coma Scale Total: 15 - Routine Psychiatric Exam Present: normal affect, normal thought process, good judgment Results - Labs CBC & Chem 7: 02/19/18 19:38 02/19/18 19:38 Laboratory Results - last 24 hr 02/19/18 02/19/18 02/19/18 17:03 19:32 19:38 WBC 6.2 RBC 4.99 Hgb 13.6 Hct 41.7 MCV 83.4 MCH 27.3 MCHC 32.8 RDW 18.3 H Plt Count 280 MPV 8.3 Neut % (Auto) 51.8 Lymph % (Auto) 23.1 [place] % (Auto) 17.6 H Eos % (Auto) 6.3 H Baso % (Auto) 1.2 Neut # (Auto) 3.2 Lymph # (Auto) 1.4 [place] # (Auto) 1.1 H Eos # (Auto) 0.4 Baso # (Auto) 0.1 WBC Differential . Differential Comment Auto diff final Sodium Potassium Chloride Carbon Dioxide Anion Gap BUN Creatinine Estimated GFR POC Glucose 146 H 139 H Random Glucose Calcium Total Bilirubin AST ALT Alkaline Phosphatase Total Protein Albumin 02/19/18 02/20/18 02/20/18 19:38 07:34 11:37 WBC RBC Hgb Hct MCV MCH MCHC RDW Plt Count MPV Neut % (Auto) Lymph % (Auto) [place] % (Auto) Eos % (Auto) Baso % (Auto) Neut # (Auto) Lymph # (Auto) [place] # (Auto) Eos # (Auto) Baso # (Auto) WBC Differential Differential Comment Sodium 136 Potassium 4.3 Chloride 103 Carbon Dioxide 23.8 Anion Gap 9 BUN 24 H Creatinine 1.52 H Estimated GFR 46 L POC Glucose 148 H 218 H Random Glucose 117 H Calcium 9.1 Total Bilirubin 0.3 AST 25 ALT 28 Alkaline Phosphatase 77 Total Protein 7.8 D Albumin 3.6 02/20/18 16:26 WBC RBC Hgb Hct MCV MCH MCHC RDW Plt Count MPV Neut % (Auto) Lymph % (Auto) [place] % (Auto) Eos % (Auto) Baso % (Auto) Neut # (Auto) Lymph # (Auto) [place] # (Auto) Eos # (Auto) Baso # (Auto) WBC Differential Differential Comment Sodium Potassium Chloride Carbon Dioxide Anion Gap BUN Creatinine Estimated GFR POC Glucose 214 H Random Glucose Calcium Total Bilirubin AST ALT Alkaline Phosphatase Total Protein Albumin Assessment and Plan - Plan Assessment and Plan (1) Chronic wound of extremity 67 year old male with history of IDDM, HTN, neuropathy, and PVD admitted for L chronic foot wound requiring skin graft. -Left chronic plantar foot wound - Continue Bactrim - Monitor for drainage - podiatry input noted. - S/P skin graft = Appreciate podiatry assistance. Diabetes mellitus - Levemir 10 units BID - Sliding scale Novolog with Accuchecks per protocol - Hold home metformin =Blood sugars acceptable. Continue to monitor. Neuropathy Diabetic. - Continue home gabapentin HTN - Continue home Lisinopril - Monitor BPs DVT prophylaxis: Heparin Discharge Planning: ok to discharge home today. f/u with PCP/ Podiatry 1 week.
--- NOTE | 2018-03-19 22:01 | MD ---
cc: Camilo Hodges MD DATE OF DISCHARGE: 02/20/2018 Okay to discharge the patient home. CONDITION AT THE TIME OF DISCHARGE: Satisfactory. ACTIVITY: As tolerated. DIET: Cardiac diet, ADA 1800 calorie diet. ALLERGIES: NO KNOWN DRUG ALLERGIES. DISCHARGE MEDICATIONS: Include: 1. [place] 5/325 every 6 hours p.r.n. pain. 2. Gabapentin 100 mg p.o. t.i.d. 3. Levemir 10 units subcutaneous twice a day. 4. Lisinopril 10 mg p.o. daily. 5. Bactrim-DS 1 p.o. twice a day. ADMITTING DIAGNOSES: 1. Left chronic plantar foot wound. The patient is status post skin graft. 2. Diabetes mellitus. 3. Diabetic neuropathy. 4. Hypertension. HOSPITAL COURSE: This is a 67-year-old, very pleasant male with a past medical and surgical history significant for diabetes mellitus--insulin requiring, hypertension, diabetic neuropathy, peripheral arterial disease, have right above-knee amputation in the past and came in for the left foot plantar area wound and needs a skin graft. The patient was seen by podiatry and had a skin graft done. The patient remained stable. No acute event happened. The patient discharged in a satisfactory condition. Please see the further details in the medical record. Camilo Hodges MD EA/ej , 03:14 PM , 03:21 PM
== END 2018-02-20 18:50 ==
LOC: NEPE 12:58 → NEDA 16:55 → N07 17:50 → UNDODISIN 02-20 18:50
PROVIDERS: ADMIT Family Medicine; ATTEND Family Medicine